=== PATIENT | female | born 1935 | race Caucasian/White ===

== ENCOUNTER 2020-01-04 08:30 | Day surgery (SDC) | payer MEDICARE, OTHER ==
[~2020-01-04] VITALS: Ht 167.6 cm; Wt 85.1 kg
[2020-01-04] VITALS (15 sets, daily range): BP systolic 116–166; BP diastolic 57–109
[2020-01-04] MEDS ORDERED: normal saline 1000ml 1,000 ML IV PRN (09:10)
[2020-01-04 09:40] LABS: BASOPHILS # (AUTO) 0.1 X10'3 (0-0.2); BASOPHILS % (AUTO) 1.1 % (0-1); EOSINOPHILS # (AUTO) 0.3 X10'3 (0-0.9); EOSINOPHILS % (AUTO) 3.8 % (0-6); HEMATOCRIT 43.2 % (35.0-45.0); HEMOGLOBIN 14.7 g/dl (12.0-16.0); LYMPHOCYTES # (AUTO) 1.6 X10'3 (1.1-4.8); LYMPHOCYTES % (AUTO) 19.6 % (21-51); MEAN CORPUSCULAR HEMOGLOBIN 31.4 PG (27.0-31.0); MEAN CORPUSCULAR VOLUME 92.3 FL (78-98); MONOCYTES # (AUTO) 0.8 X10'3 (0-0.9); MONOCYTES % (AUTO) 9.5 % (2-12); NEUTROPHILS # (AUTO) 5.3 X10'3 (1.8-7.7); PLATELET COUNT 339 X10'3 (140-440); RED BLOOD COUNT 4.68 X10'6 (4.20-5.60); RED CELL DISTRIBUTION WIDTH 13.6 % (11.5-14.5)
[2020-01-04 09:45] LABS: ALBUMIN 3.7 G/DL (3.4-5.0); ANION GAP 7 (8-16); BLOOD UREA NITROGEN 8 MG/DL (7-18); CALCIUM 9.2 MG/DL (8.5-10.1); CHLORIDE 106 MMOL/L (99-107); CREATININE 0.73 MG/DL (0.40-0.90); GLUCOSE 95 MG/DL (70-104); POTASSIUM 4.1 MMOL/L (3.5-5.1); SODIUM 142 MMOL/L (135-145); TOTAL CARBON DIOXIDE 29.1 MMOL/L (24-32); eGFR 76 ML/MIN
[2020-01-04] MEDS ORDERED: fentaNYL/PF 50MCG/1 ML 2ML syringe ONE (10:45)
[2020-01-04] MEDS ORDERED: midazolam 2 mg/2 ml injection ONE (10:45)
[2020-01-04] MEDS ORDERED: HYDROcodone/acetaminophen 5mg/325mg tablet PO PRN (11:30)
[2020-01-04] MEDS ORDERED: ZINC220C11 PO (11:55)
[2020-01-04] MEDS ORDERED: GABA-530 PO (11:58)
[2020-01-04] MEDS ORDERED: ENZY1CAP5 PO (11:59)
[2020-01-04] MEDS ORDERED: MULT-1085 PO (12:00)
[2020-01-04] MEDS ORDERED: CHOL500061 PO (12:00)
[2020-01-04] MEDS ORDERED: FLUT1AER PO (12:03)
[2020-01-04] MEDS ORDERED: LEVO100T9 PO (12:04)
[2020-01-04] MEDS ORDERED: LACT1CAP75 PO (12:05)
== END 2020-01-04 13:30 | disposition home or self-care (01) ==
LOC: SSTAY O 08:30
PROVIDERS: ATTEND Radiology Diagnostic Radiology
DX: J92.9 Pleural plaque without asbestos (principal); Z79.899 Other long term (current) drug therapy; Z88.0 Allergy status to penicillin; Z88.8 Allergy status to other drugs, medicaments and biological substances; Z79.01 Long term (current) use of anticoagulants
CPT/HCPCS: 32405; 36415; 71045; 77012; 80048; 85025; 85610; 99152; 99153; J2250; J3010